=== PATIENT | male | born 1980 | race Two or more races ===

== ENCOUNTER 2018-03-31 19:02 | Inpatient (IN) | payer OTHER ==
[~2018-03-31] VITALS: Ht 170.2 cm; Wt 115.7 kg
[2018-03-31] MEDS ORDERED: GABAPENTIN100 MG ORAL (19:22)
[2018-03-31] MEDS ORDERED: NORCO 10-325 T1 EACH ORAL (19:22)
[2018-03-31] MEDS ORDERED: MORPHINE SULFAT60 M3 PO (19:22)
[2018-03-31] MEDS ORDERED: FOLTX TABLET1 EAC1 PO (19:22)
[2018-03-31] MEDS ORDERED: EMERGEN-C 500500 MG PO (19:22)
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
--- NOTE | 2018-03-31 19:40 | NUR ---
ED Nurse Note: pt req to clean himself, pt was provided with cleaning supplies, pt refused assist at this time, pt advised to notify staff for assist.
[2018-03-31 19:47] VITALS: BP 125/73
--- NOTE | 2018-03-31 19:50 | NUR ---
ED Nurse Note: pt cleaned and changed into gown, noted skin tear and pressure ulcer on buttock area with scant serous drainage, pt aware of wound, pt education regarding prevention of pressure ulcer. pt verbalized understanding.
[2018-03-31 20:15] LABS: APPEARANCE,URINE SLIGHTLY CLOUDY; BILIRUBIN, URINE NEGATIVE (NEGATIVE); COLOR,URINE PALE YELLOW; GLUCOSE, URINE (UA) NEGATIVE (NEGATIVE); KETONES,URINE 3+ (NEGATIVE); LEUKOCYTE ESTERASE ,URINE 3+ (NEGATIVE); NITRITE,URINE NEGATIVE (NEGATIVE); PH,URINE 5 (4.5-8.0); PROTEIN,URINE 3+ (NEGATIVE); UROBILINOGEN,URINE NORMAL MG/DL (0.0-1.0)
[2018-03-31] MEDS ORDERED: Norco 5mg/325mg tab ORAL ONE (20:15)
[2018-03-31] MEDS ORDERED: Cephalexin 500mg cap ORAL ONE (20:30)
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
[2018-03-31] MEDS ORDERED: CEPHALEXIN500 MG ORAL (20:57)
[2018-03-31] MEDS ORDERED: IBUPROFEN600 MG ORAL (20:57)
[2018-03-31 21:40] VITALS: BP 118/68
[2018-03-31 22:52] LABS: BASOPHILS % (AUTO) 1.1 % (0.0-2.0); EOSINOPHILS % (AUTO) 0.9 % (0.0-3.0); HEMATOCRIT 41.3 % (42.0-52.0); HEMOGLOBIN 13.5 G/DL (14.2-18.0); LYMPHOCYTES % (AUTO) 18.3 % (20.0-45.0); MEAN CORPUSCULAR VOLUME 85 FL (80-99); MONOCYTES % (AUTO) 5.3 % (1.0-10.0); NEUTROPHILS % (AUTO) 74.4 % (45.0-75.0); PLATELET COUNT 514 K/UL (150-450); RED BLOOD COUNT 4.85 M/UL (4.70-6.10); RED CELL DISTRIBUTION WIDTH 13.8 % (11.6-14.8); WHITE BLOOD COUNT 15.7 K/UL (4.8-10.8)
--- NOTE | 2018-03-31 23:00 | NUR ---
ED Nurse Note: pt provided with sandwich and juice
[2018-03-31 23:01] LABS: ANION GAP 16 mmol/L (5-15); BLOOD UREA NITROGEN 21 mg/dL (7-18); CALCIUM 9.2 MG/DL (8.5-10.1); CARBON DIOXIDE 21 MMOL/L (21-32); CHLORIDE 99 MMOL/L (98-107); CREATININE 0.8 MG/DL (0.55-1.30); POTASSIUM 3.3 MMOL/L (3.5-5.1); SODIUM 136 MMOL/L (136-145)
[2018-03-31 23:44] VITALS: BP 118/73
--- NOTE | 2018-04-01 00:18 | NUR ---
ED Nurse Note: spoke with ZANE Estrada to give report on MEdsurg.
--- NOTE | 2018-04-01 00:45 | NUR ---
ED Nurse Note: pt transferred to [id number], and endorsed care to Albert rios.
[2018-04-01 01:00] VITALS: BP 131/75
--- NOTE | 2018-04-01 01:00 | NUR ---
NURSE NOTES: Admitted patient awake,alert,verbal,paraplegic,and self catheterize.
[2018-04-01] MEDS ORDERED: Morphine Sulfate 2mg/ml Inj IVP PRN ×2 (01:15→08:30)
[2018-04-01] MEDS ORDERED: HYDROcodone/Acetamin 10/325 tab ORAL PRN ×2 (01:30→11:18)
[2018-04-01 04:00] VITALS: BP 101/47
--- NOTE | 2018-04-01 07:40 | NUR ---
HAND-OFF: Report given to ZANE Loomis.
[2018-04-01 08:00] VITALS: BP 149/76
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
[2018-04-01] MEDS ORDERED: Cephalexin 500mg cap ORAL SCH (09:00)
--- NOTE | 2018-04-01 09:09 | NUR ---
NURSE NOTES: 0800 Received patient alert, verbally responsive. with no sob/respi distress noted. Denies any pain at this time. Assisted with AM care. IV intact. Will continue to monitor.
[2018-04-01] MEDS: Heparin 5000 units/ml inj SUBQ SCH ×2 (09:48→20:33)
--- NOTE | 2018-04-01 10:18 | NUR ---
Social Work This Sw received a consult due to substance abuse. This SW met with patient who is not recognizing he has an addiction at this time, denying abuse at this time. [facility] when medically stable for discharge.
--- NOTE | 2018-04-01 11:12 | NUR ---
NO INSURANCE INFORMATION IN THE BAR UNABLE TO SEND CLINICALS OR REVIEWS.
[2018-04-01 12:00] VITALS: BP 108/76
[2018-04-01 16:00] VITALS: BP 134/84
--- NOTE | 2018-04-01 16:01 | NUR ---
NURSE NOTES:WOUND CARE NOTES:Pt presents with Erythema with moisture intertrigo, partial thickness openings to sacral cleft and perianal region. Keloid scar noted to R trochanter .Pt stated he has had recurrent pressure injury R trochanter due to tendency to lean to R side in w/c. Pt also verbalized spending long periods in his w/c. Reabsorbed blood blister R heel with stable dry eschar R heel (L)2.2cm x(W)4cm. Periwound without erythema or induration. Stable dry eschar dorsal R st metatarsal. Educated pt on wound prevention .Pt educated of risks for R trochanter reopening and risks for further decline in skin integrity .Encouraged to use side rails to shift weight side to side at least hourly .Instructed on off-lifting buttocks when repositioning to minimize friction. Tx.Plan:Apply Triad Moisture Barrier to buttocks and perianal area each Shift. Apply Cavilon Skin Barrier to R heel.Cover with Optifoam .Change every 7 days and prn. Apply Cavilon Skin Barrier to dorsal R st metatarsal Daily. Recommend Over bed Trapeze to enable repositioning. Encourage and assist with repositioning. Off-load heels with pillow. Support surface mattress.
--- NOTE | 2018-04-01 16:57 | NUR ---
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 98.2 HR 118 RR 18 B/P 125/73 WBC 15.7 K 3.3 BUN 21 UA+ PROTEIN,KETONES,BLOOD, LEUKOCYTE ESTERASE, RBC,WBC URINE TOX + AMPHETAMINES IS: NORCO PO KEFLEX PO IV BOLUS NS X 1 LITER ADMITTED TO MED/SURG MED/SURG STATUS DCP RETURN TO [facility]
--- NOTE | 2018-04-01 17:45 | NUR ---
NURSE NOTES: tech to set up trapeze unavailable at this time.
--- NOTE | 2018-04-01 19:28 | NUR ---
HAND-OFF: Report given to ZANE Estrada.
--- NOTE | 2018-04-01 19:44 | NUR ---
NURSE NOTES: Received patient asleep,no SOB noted.
[2018-04-01 20:00] VITALS: BP 105/60
[2018-04-01] MEDS: HYDROmorphone 1mg/ml Carpuject IVP PRN (20:30)
[2018-04-02] VITALS: BP 109/51
[2018-04-02 04:00] VITALS: BP 110/75
[2018-04-02] MEDS: HYDROmorphone 1mg/ml Carpuject IVP PRN ×5 (04:15→22:09)
--- NOTE | 2018-04-02 07:16 | NUR ---
HAND-OFF: Report given to Michaela Morrow RN.
--- NOTE | 2018-04-02 07:48 | NUR ---
NURSE NOTES: Received report from ZANE Calderon. Pt is in the bed. AAO. C/o having a pain. Explained medication roud and timing. Will provide medication.No s/s of respiratory distress or discomfort noted. Bed is in the lowest position. Call light is within the reach. Will continue to monitor
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
[2018-04-02 08:00] VITALS: BP 122/84
[2018-04-02] MEDS: Heparin 5000 units/ml inj SUBQ SCH ×2 (09:40→22:07)
[2018-04-02 10:32] LABS: EOSINOPHILS % (AUTO) 4.5 % (0.0-3.0); HEMATOCRIT 35.2 % (42.0-52.0); HEMOGLOBIN 11.3 G/DL (14.2-18.0); LYMPHOCYTES % (AUTO) 28.7 % (20.0-45.0); MEAN CORPUSCULAR VOLUME 85 FL (80-99); MONOCYTES % (AUTO) 8.9 % (1.0-10.0); PLATELET COUNT 370 K/UL (150-450); RED BLOOD COUNT 4.13 M/UL (4.70-6.10); RED CELL DISTRIBUTION WIDTH 13.6 % (11.6-14.8); WHITE BLOOD COUNT 7.1 K/UL (4.8-10.8)
[2018-04-02 10:50] LABS: ANION GAP 8 mmol/L (5-15); BLOOD UREA NITROGEN 18 mg/dL (7-18); CALCIUM 8.6 MG/DL (8.5-10.1); CARBON DIOXIDE 27 MMOL/L (21-32); CHLORIDE 106 MMOL/L (98-107); CREATININE 0.5 MG/DL (0.55-1.30); POTASSIUM 3.7 MMOL/L (3.5-5.1); SODIUM 141 MMOL/L (136-145)
--- NOTE | 2018-04-02 11:08 | NUR ---
RD ASSESSMENT & RECOMMENDATIONS SEE CARE ACTIVITY FOR COMPLETE ASSESSMENT DAILY ESTIMATED NEEDS: Needs based on Wound, obese, paraplegia 78.9kg adj 25-30 kcals/kg total kcals 1.25-1.5 g protein/kg 99-118 g total protein 25-30 mL/kg total fluid mLs NUTRITION DIAGNOSIS: Increased protein and micronutrients needs r/t wound healing as evidenced by pt w/ multiple areas of skin breakdown/ concern, refer to WC eval. CURRENT DIET:Regular PO DIET RECOMMENDATIONS: Regular w/ DOUBLE PROTEIN PORTIONS ADDITIONAL RECOMMENDATIONS: 1) Wound care: Add COLLEEN BID + MVI x1 + Vit C 500mg daily 2) Calibrated bed scale wt for accurate CBW 3) Monitor lytes daily, replete as needed (low Mg 1.7) 4) Monitor for episodes of hypoglycemia
[2018-04-02 12:00] VITALS: BP 112/72
--- NOTE | 2018-04-02 13:40 | NUR ---
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 97.0 HR 81 RR 20 B/P 122/84 IS: LEVAQUIN IV IVF NS @ 125ML/HR NEURONTIN PO HEPARIN SUBC WOUND CARE CONSULT MED/SURG STATUS
--- NOTE | 2018-04-02 14:56 | NUR ---
INSURANCE ALL CLINICALS AND REVIEWS HAVE BEEN FAXED TO: [employer] [employer] ASSIGNED AT THIS TIME P- [phone] F- [phone]
[2018-04-02 16:00] VITALS: BP 120/68
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
--- NOTE | 2018-04-02 19:45 | NUR ---
NURSE NOTES: Received report from ZANE Herrmann. Patient A&Ox4. In trapeze bed. On room air, no signs of distress or labored breathing. IV intact and patent. Bed in lowest position with call light in reach. Will continue to monitor.
--- NOTE | 2018-04-02 19:54 | NUR ---
HAND-OFF: Report given to ZANE Huerta.
[2018-04-02 20:00] VITALS: BP 144/82
[2018-04-03] VITALS: BP 102/59
[2018-04-03] MEDS: HYDROmorphone 1mg/ml Carpuject IVP PRN ×5 (03:50→21:48)
[2018-04-03 04:00] VITALS: BP 112/68
[2018-04-03 06:44] LABS: BASOPHILS % (AUTO) 1.1 % (0.0-2.0); EOSINOPHILS % (AUTO) 3.7 % (0.0-3.0); HEMATOCRIT 33.5 % (42.0-52.0); HEMOGLOBIN 10.9 G/DL (14.2-18.0); LYMPHOCYTES % (AUTO) 32.8 % (20.0-45.0); MEAN CORPUSCULAR VOLUME 85 FL (80-99); MONOCYTES % (AUTO) 7.7 % (1.0-10.0); NEUTROPHILS % (AUTO) 54.7 % (45.0-75.0); PLATELET COUNT 364 K/UL (150-450); RED BLOOD COUNT 3.93 M/UL (4.70-6.10); RED CELL DISTRIBUTION WIDTH 14.1 % (11.6-14.8); WHITE BLOOD COUNT 8.3 K/UL (4.8-10.8)
[2018-04-03 06:50] LABS: ANION GAP 7 mmol/L (5-15); BLOOD UREA NITROGEN 13 mg/dL (7-18); CALCIUM 8.2 MG/DL (8.5-10.1); CARBON DIOXIDE 25 MMOL/L (21-32); CHLORIDE 106 MMOL/L (98-107); CREATININE 0.6 MG/DL (0.55-1.30); SODIUM 138 MMOL/L (136-145)
--- NOTE | 2018-04-03 07:20 | NUR ---
HAND-OFF: Report given to ZANE Herrmann.
--- NOTE | 2018-04-03 07:58 | NUR ---
NURSE NOTES: Received report from ZANE Huerta. Pt is in the bed. AAO. On the RA. No s/s of respiratory distress or discomfort noted. Bed is in the lowest position. Call light is within the reach. Will continue to monitor.
[2018-04-03 08:00] VITALS: BP 131/80
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
[2018-04-03] MEDS: Heparin 5000 units/ml inj SUBQ SCH ×2 (08:39→21:52)
[2018-04-03 12:00] VITALS: BP 132/76
--- NOTE | 2018-04-03 12:03 | NUR ---
NURSE NOTES: Received a call from Frieda from the lab. Pt is positive for MRSA nares. Dr Orourke notified. No new orders received
--- NOTE | 2018-04-03 13:03 | NUR ---
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 97.3 HR 87 RR 19 B/P 102/59 97% IS: LEVAQUIN IV IVF NS @ 125ML/HR HEPARIN SUBC MED/SURG STATUS
[2018-04-03 16:00] VITALS: BP 117/90
--- NOTE | 2018-04-03 16:37 | General Surgery Progress Note ---
General Surgery-Progress Note Subjective Additional Comments no acute events. labs improved. asking for more pain meds. no n/v/f/c. Objective Last 24 Hour Vital Signs Date Time Temp Pulse Resp B/P (MAP) Pulse Ox O2 Delivery O2 Flow Rate FiO2 04/03/18 12:00 98.4 78 20 132/76 (94) 96 04/03/18 09:00 Room Air 04/03/18 08:00 97.9 86 19 131/80 (97) 100 04/03/18 04:00 97.3 87 19 112/68 (83) 98 04/03/18 00:00 97.9 84 19 102/59 (73) 97 04/02/18 21:00 Room Air 04/02/18 20:00 97.5 104 19 144/82 (102) 100 I&O Intake and Output 04/02/18 04/03/18 19:00 07:00 Intake Total 2275 ml 725 ml Output Total 950 ml Balance 2275 ml -225 ml Intake Oral 1000 ml 600 ml IV Total 1275 ml 125 ml Output Urine Total 950 ml # Voids 5 Drains: none Cardiovascular: RSR Respiratory: clear Abdomen: soft, distended, non-tender, present bowel sounds Extremities: no cyanosis, other Laboratory Tests Test 04/03/18 06:10 White Blood Count 8.3 K/UL (4.8-10.8) Red Blood Count 3.93 M/UL (4.70-6.10) L Hemoglobin 10.9 G/DL (14.2-18.0) L Hematocrit 33.5 % (42.0-52.0) L Mean Corpuscular Volume 85 FL (80-99) Mean Corpuscular Hemoglobin 27.8 PG (27.0-31.0) Mean Corpuscular Hemoglobin Concent 32.6 G/DL (32.0-36.0) Red Cell Distribution Width 14.1 % (11.6-14.8) Platelet Count 364 K/UL (150-450) Mean Platelet Volume 6.3 FL (6.5-10.1) L Neutrophils (%) (Auto) 54.7 % (45.0-75.0) Lymphocytes (%) (Auto) 32.8 % (20.0-45.0) Monocytes (%) (Auto) 7.7 % (1.0-10.0) Eosinophils (%) (Auto) 3.7 % (0.0-3.0) H Basophils (%) (Auto) 1.1 % (0.0-2.0) Sodium Level 138 MMOL/L (136-145) Potassium Level 4.0 MMOL/L (3.5-5.1) Chloride Level 106 MMOL/L (98-107) Carbon Dioxide Level 25 MMOL/L (21-32) Anion Gap 7 mmol/L (5-15) Blood Urea Nitrogen 13 mg/dL (7-18) Creatinine 0.6 MG/DL (0.55-1.30) Estimat Glomerular Filtration Rate > 60 mL/min (>60) Glucose Level 101 MG/DL (74-106) Calcium Level 8.2 MG/DL (8.5-10.1) L Plan Problems: (1) Deep tissue injury Assessment & Plan: Pt presents with Erythema with moisture intertrigo, partial thickness openings to sacral cleft and perianal region. Keloid scar noted to R trochanter .Pt stated he has had recurrent pressure injury R trochanter due to tendency to lean to R side in w/c. Pt also verbalized spending long periods in his w/c. Reabsorbed blood blister R heel with stable dry eschar R heel (L) 2.2cm x(W)4cm. Periwound without erythema or induration. Stable dry eschar dorsal R st metatarsal. Educated pt on wound prevention .Pt educated of risks for R trochanter reopening and risks for further decline in skin integrity .Encouraged to use side rails to shift weight side to side at least hourly .Instructed on off-lifting buttocks when repositioning to minimize friction. Tx.Plan: Apply Triad Moisture Barrier to buttocks and perianal area each Shift. Apply Cavilon Skin Barrier to R heel.Cover with Optifoam .Change every 7 days and prn. Apply Cavilon Skin Barrier to dorsal R st metatarsal Daily. Recommend Over bed Trapeze to enable repositioning. Encourage and assist with repositioning. Off-load heels with pillow. Support surface mattress. (2) Back pain Mason Martinez Apr 03, 2018 16:37
--- NOTE | 2018-04-03 19:42 | NUR ---
HAND-OFF: Report given to ZANE Huerta.
--- NOTE | 2018-04-03 19:50 | NUR ---
NURSE NOTES: Received report from ZANE Herrmann. Patient A&Ox4, in bed. On room air, no signs of distress or labored breathing. IV intact, patent, and infusing IV fluids. No current complaints of pain. Bed in lowest position with call light in reach. Will continue with plan of care.
[2018-04-03 20:00] VITALS: BP 127/72
[2018-04-04] VITALS: BP 127/50
[2018-04-04] MEDS: HYDROmorphone 1mg/ml Carpuject IVP PRN ×6 (01:48→22:28)
[2018-04-04 04:00] VITALS: BP 106/78
--- NOTE | 2018-04-04 07:38 | NUR ---
NURSE NOTES: Received report from ANA Perez. Pt is in the bed, On the RA. No s.s of respiratory distress or discomfort noted. Bed is in the lowest position. Call light is within the reach. Will continue to monitor Addendum: 04/04/18 at 0747 by Michaela Paredes RN Received report from ZANE Huerta
--- NOTE | 2018-04-04 07:58 | NUR ---
HAND-OFF: Report given to ZANE Herrmann.
[2018-04-04 08:00] VITALS: BP 137/68
[2018-04-04 08:32] LABS: BASOPHILS % (AUTO) 0.9 % (0.0-2.0); EOSINOPHILS % (AUTO) 2.8 % (0.0-3.0); HEMATOCRIT 37.5 % (42.0-52.0); MEAN CORPUSCULAR VOLUME 86 FL (80-99); MONOCYTES % (AUTO) 4.9 % (1.0-10.0); NEUTROPHILS % (AUTO) 66.4 % (45.0-75.0); PLATELET COUNT 404 K/UL (150-450); RED BLOOD COUNT 4.34 M/UL (4.70-6.10); RED CELL DISTRIBUTION WIDTH 14.2 % (11.6-14.8); WHITE BLOOD COUNT 9.3 K/UL (4.8-10.8)
[2018-04-04 08:50] LABS: ANION GAP 7 mmol/L (5-15); BLOOD UREA NITROGEN 13 mg/dL (7-18); CALCIUM 8.5 MG/DL (8.5-10.1); CARBON DIOXIDE 28 MMOL/L (21-32); CHLORIDE 105 MMOL/L (98-107); CREATININE 0.6 MG/DL (0.55-1.30); POTASSIUM 4.2 MMOL/L (3.5-5.1); SODIUM 140 MMOL/L (136-145)
--- NOTE | 2018-04-04 09:19 | NUR ---
CASE MANAGEMENT:REVIEW 04/04/18 SI: SEPSIS. ACUTE PYELONEPHRITIS 97.7 88 18 137/68 98% ON RA H/H-12.0/37.5 IS: NORCO PO Q6HRS PRN IV LEVAQUIN Q24 NEURONTIN PO TID ADVIL PO TID HEPARIN SQ Q12 IVF@125/HR IV DILAUDID Q4HRS PRN : MED/SURG STATUS 4 EAST DCP: FROM HOME
--- NOTE | 2018-04-04 09:25 | NUR ---
DISCHARGE PLANNING REFERRED BACK TO: [facility] T: [phone] F: [phone] CLINICALS FAXED Addendum: 04/04/18 at 1106 by YOHAN DESAI LVN LVN CALLED [facility] REGARDING BED AVAILABILITY SPOKE WITH THE RN [employer] WHO STATED PATIENT ALREADY CALLED AND SHE EXPLAINED TO HIM THAT HIS BED WAS GIVEN AWAY WHEN HE LEFT AMA DISCUSSED WITH DR GREENBERG WILL REFER PATIENT TO [facility] CONTRACTED FACILITIES Addendum: 04/04/18 at 1228 by YOHAN DESAI LVN LVN REFERRED TO [facility] T: [phone] F: [phone] AND JIMMY DAVENPORT T: [phone] F: [phone]
[2018-04-04] MEDS: Heparin 5000 units/ml inj SUBQ SCH ×2 (10:00→21:28)
[2018-04-04] MEDS ORDERED: BACTRIM DS TAB1 EAC1 ORAL (10:05)
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
--- NOTE | 2018-04-04 11:37 | General Surgery Progress Note ---
General Surgery-Progress Note Subjective Symptoms: improved, tolerating diet, passing flatus Additional Comments pain improving. states he feels better. Objective Last 24 Hour Vital Signs Date Time Temp Pulse Resp B/P (MAP) Pulse Ox O2 Delivery O2 Flow Rate FiO2 04/04/18 09:00 Room Air 04/04/18 08:00 97.7 88 18 137/68 (91) 98 04/04/18 04:00 97.9 81 20 106/78 (87) 98 04/04/18 00:00 97.7 97 19 127/50 (75) 98 04/03/18 21:00 Room Air 04/03/18 20:00 97.5 80 18 127/72 (90) 99 04/03/18 16:00 97.7 87 20 117/90 (99) 99 04/03/18 12:00 98.4 78 20 132/76 (94) 96 I&O Intake and Output 04/03/18 04/04/18 19:00 07:00 Intake Total 2200 ml 725 ml Output Total 1000 ml 900 ml Balance 1200 ml -175 ml Intake Oral 800 ml 600 ml IV Total 1400 ml 125 ml Output Urine Total 1000 ml 900 ml # Bowel Movements 1 Drains: none Cardiovascular: RSR Respiratory: clear Abdomen: soft, flat, non-tender, present bowel sounds Extremities: other Laboratory Tests Test 04/04/18 07:50 White Blood Count 9.3 K/UL (4.8-10.8) Red Blood Count 4.34 M/UL (4.70-6.10) L Hemoglobin 12.0 G/DL (14.2-18.0) L Hematocrit 37.5 % (42.0-52.0) L Mean Corpuscular Volume 86 FL (80-99) Mean Corpuscular Hemoglobin 27.6 PG (27.0-31.0) Mean Corpuscular Hemoglobin Concent 32.0 G/DL (32.0-36.0) Red Cell Distribution Width 14.2 % (11.6-14.8) Platelet Count 404 K/UL (150-450) Mean Platelet Volume 6.3 FL (6.5-10.1) L Neutrophils (%) (Auto) 66.4 % (45.0-75.0) Lymphocytes (%) (Auto) 25.0 % (20.0-45.0) Monocytes (%) (Auto) 4.9 % (1.0-10.0) Eosinophils (%) (Auto) 2.8 % (0.0-3.0) Basophils (%) (Auto) 0.9 % (0.0-2.0) Sodium Level 140 MMOL/L (136-145) Potassium Level 4.2 MMOL/L (3.5-5.1) Chloride Level 105 MMOL/L (98-107) Carbon Dioxide Level 28 MMOL/L (21-32) Anion Gap 7 mmol/L (5-15) Blood Urea Nitrogen 13 mg/dL (7-18) Creatinine 0.6 MG/DL (0.55-1.30) Estimat Glomerular Filtration Rate > 60 mL/min (>60) Glucose Level 101 MG/DL (74-106) Calcium Level 8.5 MG/DL (8.5-10.1) Plan Problems: (1) Deep tissue injury Assessment & Plan: Pt presents with Erythema with moisture intertrigo, partial thickness openings to sacral cleft and perianal region. Keloid scar noted to R trochanter .Pt stated he has had recurrent pressure injury R trochanter due to tendency to lean to R side in w/c. Pt also verbalized spending long periods in his w/c. Reabsorbed blood blister R heel with stable dry eschar R heel (L) 2.2cm x(W)4cm. Periwound without erythema or induration. Stable dry eschar dorsal R st metatarsal. Educated pt on wound prevention .Pt educated of risks for R trochanter reopening and risks for further decline in skin integrity .Encouraged to use side rails to shift weight side to side at least hourly .Instructed on off-lifting buttocks when repositioning to minimize friction. Tx.Plan: Apply Triad Moisture Barrier to buttocks and perianal area each Shift. Apply Cavilon Skin Barrier to R heel.Cover with Optifoam .Change every 7 days and prn. Apply Cavilon Skin Barrier to dorsal R st metatarsal Daily. Recommend Over bed Trapeze to enable repositioning. Encourage and assist with repositioning. Off-load heels with pillow. Support surface mattress. (2) Back pain Mason Martinez Apr 04, 2018 11:37
[2018-04-04 12:00] VITALS: BP 125/64
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
[2018-04-04] MEDS: Bactrim-DS 1 tab ORAL SCH (15:50)
[2018-04-04 15:59] VITALS: BP 134/71
--- NOTE | 2018-04-04 19:25 | NUR ---
NURSE NOTES: Received patient in bed awake. A&O x4. Denies any pain or discomfort at this time. IV line intact and infusing fluids at 125 ml/hr. Call light within reach. Bed in lowest position and locked. Will continue to monitor.
--- NOTE | 2018-04-04 19:55 | NUR ---
HAND-OFF: Report given to ZANE Victoria.
[2018-04-04 20:00] VITALS: BP 125/72
[2018-04-05] VITALS: BP 120/67
[2018-04-05] MEDS: Bactrim-DS 1 tab ORAL SCH ×2 (02:07→13:16)
[2018-04-05] MEDS: HYDROmorphone 1mg/ml Carpuject IVP PRN ×6 (02:25→23:27)
[2018-04-05 04:00] VITALS: BP 128/74
--- NOTE | 2018-04-05 07:17 | NUR ---
HAND-OFF: Report given to ZANE Aldana.
[2018-04-05 07:24] LABS: BASOPHILS % (AUTO) 0.8 % (0.0-2.0); EOSINOPHILS % (AUTO) 4.6 % (0.0-3.0); HEMOGLOBIN 11.3 G/DL (14.2-18.0); LYMPHOCYTES % (AUTO) 35.2 % (20.0-45.0); MEAN CORPUSCULAR VOLUME 85 FL (80-99); MONOCYTES % (AUTO) 7.1 % (1.0-10.0); NEUTROPHILS % (AUTO) 52.2 % (45.0-75.0); PLATELET COUNT 379 K/UL (150-450); RED BLOOD COUNT 4.09 M/UL (4.70-6.10); RED CELL DISTRIBUTION WIDTH 14.5 % (11.6-14.8); WHITE BLOOD COUNT 6.9 K/UL (4.8-10.8)
[2018-04-05 07:39] LABS: ANION GAP 9 mmol/L (5-15); BLOOD UREA NITROGEN 14 mg/dL (7-18); CALCIUM 8.3 MG/DL (8.5-10.1); CARBON DIOXIDE 26 MMOL/L (21-32); CHLORIDE 105 MMOL/L (98-107); CREATININE 0.7 MG/DL (0.55-1.30); POTASSIUM 4.1 MMOL/L (3.5-5.1); SODIUM 140 MMOL/L (136-145)
--- NOTE | 2018-04-05 07:50 | NUR ---
NURSE NOTES: Received report from ZANE Victoria. Pt is in the bed, AAO. No s/s of respiratory distress or discomfort noted. Bed is in the lowest position. Call light is within the reach. Will continue to monitor.
[2018-04-05 08:00] VITALS: BP 121/75
[2018-04-05] MEDS: Heparin 5000 units/ml inj SUBQ SCH ×2 (08:27→20:49)
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
[2018-04-05 12:00] VITALS: BP 113/66
--- NOTE | 2018-04-05 15:09 | NUR ---
CASE MANAGEMENT:REVIEW 04/05/18 SI: SEPSIS. ACUTE PYELONEPHRITIS 97.0 65 19 113/66 98% ON RA H/H-11.3/35.0 IS: NORCO PO Q6HRS PRN BACTRIM PO Q12 NEURONTIN PO TID ADVIL PO TID HEPARIN SQ Q12 IVF@125/HR IV DILAUDID Q4HRS PRN : MED/SURG STATUS 4 EAST DCP: FROM HOME
--- NOTE | 2018-04-05 15:12 | NUR ---
DISCHARGE PLANNING PATIENT WAS REFERRED BACK TO [facility] YESTERDAY. THEY SAID TO CALL BACK ON FRIDAY TO CONFIRM IF THEY ARE TAKING PATIENT BACK OR NOT. SEEMS PATIENT LEFT [facility] AM REFERRED TO [facility] T: [phone] AND [facility] T: [phone] VINE PRUNER TO FOLLOW UP ON FRIDAY AND INFORM DR GREENBERG ONCE PLACEMENT HAS BEEN SECURED
[2018-04-05 16:00] VITALS: BP 126/75
--- NOTE | 2018-04-05 19:17 | NUR ---
HAND-OFF: Report given to ZANE Victoria.
--- NOTE | 2018-04-05 19:30 | NUR ---
NURSE NOTES: Received patient in bed, alert x4, able to make need known, No acute distress noted, Bed in lowest position and lock engaged, call light and need with in reach, Will continue to monitor.
[2018-04-05 20:00] VITALS: BP 133/71
[2018-04-06] VITALS: BP 124/73
[2018-04-06] MEDS: Bactrim-DS 1 tab ORAL SCH ×2 (01:26→13:40)
[2018-04-06 04:00] VITALS: BP 130/78
[2018-04-06] MEDS: HYDROmorphone 1mg/ml Carpuject IVP PRN ×4 (05:27→22:05)
--- NOTE | 2018-04-06 07:31 | NUR ---
HAND-OFF: Report given to ZANE Kramer.
[2018-04-06 08:00] VITALS: BP 115/64
[2018-04-06] MEDS: Heparin 5000 units/ml inj SUBQ SCH ×2 (09:31→20:43)
--- NOTE | 2018-04-06 10:45 | NUR ---
NURSE NOTES: pt in bed with no sob nor in any form of distress noted. all due meds given as ordered. pain med given as needed. will continue to monitor
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
[2018-04-06 12:00] VITALS: BP 116/69
[2018-04-06] MEDS ORDERED: HYDROmorphone 1mg/ml Carpuject IVP SCH (12:15)
--- NOTE | 2018-04-06 13:50 | NUR ---
INSURANCE ALL CLINICALS AND REVIEWS FAXED TO: STEPHAN[facility] NO ARTIFICIAL BREEDING TECHNICIAN ASSIGNED AT THIS TIME P- [phone] F- [phone]
--- NOTE | 2018-04-06 13:51 | NUR ---
DISCHARGE PLANNING PATIENT HAS BEEN REFERRED TO: [facility] P:[phone] F:[phone]
--- NOTE | 2018-04-06 15:10 | NUR ---
DISCHARGE PLANNING PATIENT HAS BEEN REFERRED TO: [facility] P:[phone] F: [phone] Addendum: 04/07/18 at 1334 by LAST TEIXEIRA Pt not accepted back spoke to Damien. Pt went AMA before so this is the reason they will not take him back
--- NOTE | 2018-04-06 15:38 | NUR ---
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 97.9 HR 71 RR 20 B/P 116/69 RA 97% IS: BACTRIM DS IVF NS @ 125ML/HR HEPARIN SUBC NEURONTIN PO DISCHARGE PLANNING MED/SURG STATUS
[2018-04-06 16:00] VITALS: BP 115/60
--- NOTE | 2018-04-06 18:10 | General Surgery Progress Note ---
General Surgery-Progress Note Subjective Additional Comments doing okay. no complaints. comfortable. pain improving. no n/v/f/c. pending placement Objective Last 24 Hour Vital Signs Date Time Temp Pulse Resp B/P (MAP) Pulse Ox O2 Delivery O2 Flow Rate FiO2 04/06/18 17:56 98.7 04/06/18 17:55 98.7 04/06/18 16:00 98.1 76 20 115/60 (78) 97 04/06/18 12:55 98.7 04/06/18 12:00 97.9 71 20 116/69 (85) 97 04/06/18 09:00 Room Air 04/06/18 08:00 97.5 85 20 115/64 (81) 100 04/06/18 04:00 98.7 88 20 130/78 (95) 100 04/06/18 00:00 97.8 92 18 124/73 (90) 98 04/05/18 21:00 Room Air 04/05/18 20:00 99.7 82 20 133/71 (91) 97 I&O Intake and Output 04/05/18 04/06/18 19:00 07:00 Intake Total 2690 ml 1475 ml Balance 2690 ml 1475 ml Intake Oral 480 ml 350 ml IV Total 1250 ml 1125 ml Other 960 ml # Voids 3 # Bowel Movements 1 Dressing: other Wound: other Drains: other Cardiovascular: RSR Respiratory: clear Abdomen: soft, non-tender, present bowel sounds Extremities: other Plan Problems: (1) Deep tissue injury Assessment & Plan: Pt presents with Erythema with moisture intertrigo, partial thickness openings to sacral cleft and perianal region. Keloid scar noted to R trochanter .Pt stated he has had recurrent pressure injury R trochanter due to tendency to lean to R side in w/c. Pt also verbalized spending long periods in his w/c. Reabsorbed blood blister R heel with stable dry eschar R heel (L) 2.2cm x(W)4cm. Periwound without erythema or induration. Stable dry eschar dorsal R st metatarsal. Educated pt on wound prevention .Pt educated of risks for R trochanter reopening and risks for further decline in skin integrity .Encouraged to use side rails to shift weight side to side at least hourly .Instructed on off-lifting buttocks when repositioning to minimize friction. Tx.Plan: Apply Triad Moisture Barrier to buttocks and perianal area each Shift. Apply Cavilon Skin Barrier to R heel.Cover with Optifoam .Change every 7 days and prn. Apply Cavilon Skin Barrier to dorsal R st metatarsal Daily. Recommend Over bed Trapeze to enable repositioning. Encourage and assist with repositioning. Off-load heels with pillow. Support surface mattress. (2) Back pain Assessment & Plan: improving pending placement Mason Martinez Apr 06, 2018 18:10
--- NOTE | 2018-04-06 19:30 | NUR ---
NURSE NOTES: Received patient in bed, awake, alert x4, able to make need known, No acute distress noted, Bed in lowest position and lock engaged, call light and need with in reach, Will continue to plan of care.
--- NOTE | 2018-04-06 19:37 | NUR ---
HAND-OFF: Report given to ZANE Tristan.
[2018-04-06 20:00] VITALS: BP 145/69
--- NOTE | 2018-04-06 22:00 | NUR ---
NURSE NOTES: Patient got agitated and tried to manipulate staff when IV access wasn't working and couldn't get his pain medicine on time. Re-inserted IV successfully and medicated as ordered.
[2018-04-07] VITALS: BP 129/60
[2018-04-07] MEDS: HYDROmorphone 1mg/ml Carpuject IVP PRN ×5 (02:04→18:23)
[2018-04-07] MEDS: Bactrim-DS 1 tab ORAL SCH ×2 (02:06→14:11)
[2018-04-07 04:00] VITALS: BP 113/70
--- NOTE | 2018-04-07 06:10 | NUR ---
NURSE NOTES: Noted BS 285 for 0630 Novolog sliding scale with 8units coverage, Patient has been NPO midnight for EGD this morning, Called Dr. Pak and left message regarding patient's condition. Received call back from Dr. Pak with order to give 6units of Novolog and 6units of Levemir at this time, done.
--- NOTE | 2018-04-07 07:13 | NUR ---
HAND-OFF: Report given to ZANE Shetty.
[2018-04-07 08:00] VITALS: BP 113/66
--- NOTE | 2018-04-07 08:00 | NUR ---
NURSE NOTES: Received patient alert, in bed. still complaining of pain on lower back. Dilaudid not due at this time. patient alert, awake. prefers Dilaudid for pain. All needs attended. Call light made within reach. WIll cont to monitor.
[2018-04-07] MEDS: Heparin 5000 units/ml inj SUBQ SCH ×2 (09:18→21:00)
[2018-04-07 12:00] VITALS: BP 114/66
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
--- NOTE | 2018-04-07 13:24 | General Surgery Progress Note ---
General Surgery-Progress Note Subjective Symptoms: improved, pain absent, tolerating diet, passing flatus Additional Comments much improved. pending placement Objective Last 24 Hour Vital Signs Date Time Temp Pulse Resp B/P (MAP) Pulse Ox O2 Delivery O2 Flow Rate FiO2 04/07/18 12:00 98.4 84 17 114/66 (82) 97 04/07/18 09:00 Room Air 04/07/18 08:00 98.3 93 17 113/66 (82) 97 04/07/18 04:00 97.3 75 17 113/70 (84) 98 04/07/18 00:00 97.7 75 18 129/60 (83) 99 04/06/18 21:00 Room Air 04/06/18 20:00 97.0 80 17 145/69 (94) 99 04/06/18 17:56 98.7 04/06/18 17:55 98.7 04/06/18 16:00 98.1 76 20 115/60 (78) 97 I&O Intake and Output 04/06/18 04/07/18 19:00 07:00 Intake Total 3775 ml Output Total 1501 ml 900 ml Balance 2274 ml -900 ml Intake Oral 1900 ml IV Total 875 ml Other 1000 ml Output Urine Total 1500 ml 900 ml Stool Total 1 ml # Voids 3 2 # Bowel Movements 1 Cardiovascular: RSR Respiratory: clear Abdomen: soft, non-tender, present bowel sounds Extremities: no cyanosis Plan Problems: (1) Deep tissue injury Assessment & Plan: Pt presents with Erythema with moisture intertrigo, partial thickness openings to sacral cleft and perianal region. Keloid scar noted to R trochanter .Pt stated he has had recurrent pressure injury R trochanter due to tendency to lean to R side in w/c. Pt also verbalized spending long periods in his w/c. Reabsorbed blood blister R heel with stable dry eschar R heel (L) 2.2cm x(W)4cm. Periwound without erythema or induration. Stable dry eschar dorsal R st metatarsal. Educated pt on wound prevention .Pt educated of risks for R trochanter reopening and risks for further decline in skin integrity .Encouraged to use side rails to shift weight side to side at least hourly .Instructed on off-lifting buttocks when repositioning to minimize friction. Tx.Plan: Apply Triad Moisture Barrier to buttocks and perianal area each Shift. Apply Cavilon Skin Barrier to R heel.Cover with Optifoam .Change every 7 days and prn. Apply Cavilon Skin Barrier to dorsal R st metatarsal Daily. Recommend Over bed Trapeze to enable repositioning. Encourage and assist with repositioning. Off-load heels with pillow. Support surface mattress. (2) Back pain Assessment & Plan: improving pending placement Mason Martinez Apr 07, 2018 13:24
--- NOTE | 2018-04-07 13:34 | NUR ---
DISCHARGE PLANNING PT HAS BEEN REFFERED TO: [facility]UC[facility] P:[phone] F:[phone]
--- NOTE | 2018-04-07 15:20 | NUR ---
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 98.4 HR 84 RR 17 B/P 114/69 IS: BACTRIM DS PO RISPERDAL PO IVF NS @ 125ML/HR HEPARIN SUBC. PLACEMENT PENDING MED/SURG STATUS
[2018-04-07 16:00] VITALS: BP 129/78
--- NOTE | 2018-04-07 19:30 | NUR ---
NURSE NOTES: Recieved patient in bed, awake, alert, oriented. No acute distress noted or reported, bed is in low position, alarm is on and bed is locked. Call light is within reach, will continue to monitor for safety and comfort.
--- NOTE | 2018-04-07 19:44 | NUR ---
HAND-OFF: Report given to ZANE Maldonado.
[2018-04-07 20:00] VITALS: BP 97/56
[2018-04-08] VITALS: BP 107/55
[2018-04-08] MEDS: HYDROmorphone 1mg/ml Carpuject IVP PRN ×5 (00:17→23:04)
[2018-04-08] MEDS: Bactrim-DS 1 tab ORAL SCH ×2 (01:30→13:27)
[2018-04-08 04:26] VITALS: BP 82/42
--- NOTE | 2018-04-08 04:34 | NUR ---
NURSE NOTES: Morning blood pressure reading is 81/61, rechecked after 10 min 82/42, patient is asymptomatic, responsive, awake, alert, oriented. Will continue to monitor. CN is aware.
--- NOTE | 2018-04-08 05:47 | NUR ---
NURSE NOTES: Blood pressure re checked 107/53.
--- NOTE | 2018-04-08 07:31 | NUR ---
HAND-OFF: Report given to Sam DEGROOT.
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
[2018-04-08 08:00] VITALS: BP 115/59
--- NOTE | 2018-04-08 08:03 | NUR ---
NURSE NOTES: Received pt from ZANE ROSE. Pt is alert and orient x4. no SOB or acute respiratory distress noted. pt has intact IV access LH 22g is running well. all needs attended, bed is locked and is in the lowest position, call light within easy reach. will continue to monitor.
[2018-04-08] MEDS: Heparin 5000 units/ml inj SUBQ SCH ×2 (09:03→21:00)
--- NOTE | 2018-04-08 11:24 | NUR ---
DISCHARGE PLANNING CURRENTLY SEEKING PLACEMENT, PATIENT HAS BEEN REFERRED TO: 1. [facility] P:[phone] F:[phone] 2. [facility] P:[phone] F:[phone] 3. [facility] P:[phone] F:[phone] 4. [facility] P: [phone] F:[phone] 5. [facility] P:[phone] F:[phone] 6. [facility] P:[phone] F:[phone] 7. [facility] P:[phone] F:[phone] 8. [facility] P:[phone] F:[phone] 9. [facility] P;[phone] F: [phone] 10. [facility] p:[phone] f:[phone]
[2018-04-08 11:53] VITALS: BP 116/51
--- NOTE | 2018-04-08 12:50 | NUR ---
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 98.1 HR 68 RR 19 B/P 116/51 RA 98% IS: BACTRIM DS PO RISPERDAL PO IVF NS 125ML/HR HEPARIN SUBC PLACEMENT PENDING MED/SURG STATUS
--- NOTE | 2018-04-08 14:02 | General Surgery Progress Note ---
General Surgery-Progress Note Subjective Symptoms: improved, pain absent, tolerating diet, passing flatus Objective Last 24 Hour Vital Signs Date Time Temp Pulse Resp B/P (MAP) Pulse Ox O2 Delivery O2 Flow Rate FiO2 04/08/18 11:53 98.1 68 19 116/51 (72) 99 04/08/18 11:24 97.6 04/08/18 09:27 97.6 04/08/18 09:00 Room Air 04/08/18 08:00 97.6 80 19 115/59 (77) 04/08/18 04:26 98.9 83 20 82/42 (55) 04/08/18 00:00 98.5 89 19 107/55 (72) 96 04/07/18 21:00 Room Air 04/07/18 20:00 98.4 108 20 97/56 (70) 04/07/18 16:00 98.8 95 17 129/78 (95) 97 I&O Intake and Output 04/07/18 04/08/18 18:59 06:59 Intake Total 1080 ml 1250 ml Output Total 300 ml Balance 1080 ml 950 ml Intake Oral 1080 ml IV Total 1250 ml Output Urine Total 300 ml # Voids 3 3 # Bowel Movements 4 3 Dressing: other Wound: other Drains: other Cardiovascular: RSR Respiratory: clear Abdomen: soft, flat, non-tender, present bowel sounds Extremities: other Plan Problems: (1) Deep tissue injury Assessment & Plan: Pt presents with Erythema with moisture intertrigo, partial thickness openings to sacral cleft and perianal region. Keloid scar noted to R trochanter .Pt stated he has had recurrent pressure injury R trochanter due to tendency to lean to R side in w/c. Pt also verbalized spending long periods in his w/c. Reabsorbed blood blister R heel with stable dry eschar R heel (L) 2.2cm x(W)4cm. Periwound without erythema or induration. Stable dry eschar dorsal R st metatarsal. Educated pt on wound prevention .Pt educated of risks for R trochanter reopening and risks for further decline in skin integrity .Encouraged to use side rails to shift weight side to side at least hourly .Instructed on off-lifting buttocks when repositioning to minimize friction. Tx.Plan: Apply Triad Moisture Barrier to buttocks and perianal area each Shift. Apply Cavilon Skin Barrier to R heel.Cover with Optifoam .Change every 7 days and prn. Apply Cavilon Skin Barrier to dorsal R st metatarsal Daily. Recommend Over bed Trapeze to enable repositioning. Encourage and assist with repositioning. Off-load heels with pillow. Support surface mattress. (2) Back pain Assessment & Plan: improving pending placement Mason Martinez Apr 08, 2018 14:02
--- NOTE | 2018-04-08 15:19 | NUR ---
RD ASSESSMENT & RECOMMENDATIONS SEE CARE ACTIVITY FOR COMPLETE ASSESSMENT DAILY ESTIMATED NEEDS: Needs based on Wound, obese, paraplegia 78.9kg adj 25-30 kcals/kg [id number] total kcals 1.25-1.5 g protein/kg 99-118 g total protein 25-30 mL/kg total fluid mLs NUTRITION DIAGNOSIS: Increased protein and micronutrients needs r/t wound healing as evidenced by pt w/ multiple areas of skin breakdown/ concern, refer to WC loretta. CURRENT DIET:Regular PO DIET RECOMMENDATIONS: Regular w/ DOUBLE PROTEIN PORTIONS ADDITIONAL RECOMMENDATIONS: 1) Wound care: Add COLLEEN BID + MVI x1 + Vit C 500mg daily 2) Calibrated bed scale wt for accurate CBW 3) Monitor lytes daily, replete as needed, check follow up mag (1.7 on 04/01) 4) Snacks BID in b/w meals 5) Consider DC IVF (NS running @ 125ml/hr since 04/01, pt w/ good PO intake, BUN and creat all wnl)
[2018-04-08 16:00] VITALS: BP 119/63
--- NOTE | 2018-04-08 19:30 | NUR ---
NURSE NOTES: Recieved patient in bed, awake, alert, oriented, on room air, no acute distress noted, bed is in low position, locked and alarm is on. Call light is within reach, will continue to monitor for safety and comfort.
--- NOTE | 2018-04-08 19:44 | NUR ---
HAND-OFF: Report given to ZANE ROSE.
[2018-04-08 20:00] VITALS: BP 104/55
--- NOTE | 2018-04-08 22:59 | NUR ---
NURSE NOTES: Patient has been calling and demanding his Dilaudid 1 mg that has been changed by Dr. Orourke to be given every 6 hours, RN called MD exchange and spoke with covering MD Dr. Terry, per MD its ok to medicate right now at 2300, order will remain every 6 hours, and patient will see MD in am.
[2018-04-09] MEDS: Bactrim-DS 1 tab ORAL SCH ×2 (02:15→14:34)
[2018-04-09] MEDS: HYDROmorphone 1mg/ml Carpuject IVP PRN ×4 (05:37→23:37)
--- NOTE | 2018-04-09 07:31 | NUR ---
NURSE NOTES: Received pt from ZANE ROSE. Pt is alert and orient x4. No SOB or acute respiratory distress noted. pt has intact iv access LH 22g is running well. Dr carter visited pt NNO.all needs attended, bed is locked and is in the lowest position, call light within easy reach. will continue to monitor.
[2018-04-09 08:00] VITALS: BP 145/79
[2018-04-09] MEDS: Heparin 5000 units/ml inj SUBQ SCH ×2 (08:40→20:21)
[2018-04-09 11:58] VITALS: BP 137/84
[2018-04-09 16:00] VITALS: BP 108/60
--- NOTE | 2018-04-09 16:26 | NUR ---
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 98.2 HR 86 RR 18 B/P 108/60 RA 98% IS: IVF NS @ 125ML/HR BACTRIM DS PO NEURONTIN PO PLACEMENT PENDING MED/SURG STATUS
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
--- NOTE | 2018-04-09 19:19 | NUR ---
HAND-OFF: Report given to ZANE ORTEGA.
--- NOTE | 2018-04-09 19:55 | NUR ---
NURSE NOTES: Patient in bed awake and alert x4, no s/s distress noted. All needs attended to. Safety precaution maintained. Call light within reach.
[2018-04-09 20:00] VITALS: BP 105/58
[2018-04-10] VITALS: BP 117/69
[2018-04-10] MEDS: Bactrim-DS 1 tab ORAL SCH (02:00)
[2018-04-10 04:00] VITALS: BP 111/70
[2018-04-10] MEDS: HYDROmorphone 1mg/ml Carpuject IVP PRN ×3 (05:37→17:42)
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
--- NOTE | 2018-04-10 07:25 | NUR ---
HAND-OFF: Report given to Sam DEGROOT.
--- NOTE | 2018-04-10 07:56 | NUR ---
NURSE NOTES: Received pt from ZANE ORTEGA. Pt is alert and orient x4. No SOB or acute respiratory distress noted. pt has intact iv access LH 22g is running well . pt is in contact isolation. all needs attended, bed is locked and is in the lowest position, call light within easy reach. will continue to monitor.
[2018-04-10 08:00] VITALS: BP 111/80
[2018-04-10] MEDS: Heparin 5000 units/ml inj SUBQ SCH ×2 (09:17→20:35)
[2018-04-10 12:00] VITALS: BP 125/86
[2018-04-10 16:00] VITALS: BP 119/89
--- NOTE | 2018-04-10 16:56 | NUR ---
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 99.3 HR 96 RR 20 B/P 119/89 RA 98% IS: NEURONTIN PO IVF NS 125ML/HR HEPARIN SUBC RISPERDAL PO PLACEMENT PENDING MED/SURG STATUS
--- NOTE | 2018-04-10 19:40 | NUR ---
NURSE NOTES: Received patient alert and awake in bed. Reports 8/10 pain. No other acute signs of distress. IV site L hand running NS at 125 ml/hr. 3 side rails up, bed on lowest position, call light within reach.
[2018-04-10 20:00] VITALS: BP 128/81
--- NOTE | 2018-04-10 20:15 | NUR ---
HAND-OFF: Report given to ZANE ORTEGA.
[2018-04-10] MEDS ORDERED: HYDROmorphone 1mg/ml Carpuject IVP SCH (21:00)
--- NOTE | 2018-04-10 21:10 | NUR ---
NURSE NOTES: Pt c/o 01/07 back pain, c/o last dose pain medicine was not effective. Called national sales executive Dr Pratt, received order for dilaudid 1mg ivp once. Order carried out.
[2018-04-11] VITALS: BP 117/76
[2018-04-11] MEDS: HYDROmorphone 1mg/ml Carpuject IVP PRN ×4 (03:42→21:41)
[2018-04-11 04:00] VITALS: BP 117/62
--- NOTE | 2018-04-11 07:06 | NUR ---
HAND-OFF: Report given to ZANE Singer .
[2018-04-11 08:00] VITALS: BP 143/92
[2018-04-11] MEDS: Heparin 5000 units/ml inj SUBQ SCH ×2 (08:17→21:47)
[2018-04-11 12:00] VITALS: BP 125/60
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
--- NOTE | 2018-04-11 15:51 | NUR ---
NURSE NOTES: Two bag of straight cath provided.
[2018-04-11 16:00] VITALS: BP 151/81
--- NOTE | 2018-04-11 19:41 | NUR ---
HAND-OFF: Report given to ZANE Aceves.
--- NOTE | 2018-04-11 19:42 | NUR ---
NURSE NOTES: Received patient in no apparent distress. A&OX4. IV site patent and intact. Bed in lowest position. Call light within reach. Will continue to monitor.
[2018-04-11 20:00] VITALS: BP 128/73
[2018-04-12] VITALS: BP 125/55
[2018-04-12] MEDS: HYDROmorphone 1mg/ml Carpuject IVP PRN ×4 (03:38→21:40)
[2018-04-12 04:00] VITALS: BP 136/84
--- NOTE | 2018-04-12 07:19 | NUR ---
HAND-OFF: Report given to Rebeca DEGROOT.
[2018-04-12 08:00] VITALS: BP 121/54
--- NOTE | 2018-04-12 08:20 | NUR ---
NURSE NOTES: Received patient awake,verbally responsive in bed. with no sob. Denies any pain at this time IV on right hand intact. All needs attended. Call light made within reach. will cont to monitor.
[2018-04-12] MEDS: Heparin 5000 units/ml inj SUBQ SCH ×2 (09:00→21:42)
--- NOTE | 2018-04-12 10:55 | NUR ---
NURSE NOTES: Received report from Rebeca,patient is alert and oriented, sitting up in bed,no needs noted at this time,call light within reach.
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
[2018-04-12 12:00] VITALS: BP 108/65
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
--- NOTE | 2018-04-12 17:18 | NUR ---
PHARMACY ASSOCIATECLAY HOISTER 04/11/2018 SI: FAILURE TO THRIVE T 98.1 HR 76 RR 19 B/P 151/81 SATS 97% ON RA NO LABS TODAY IS: NEURONTIN PO IVF NS 125ML/HR HEPARIN SUBQ RISPERDAL PO PLACEMENT PENDING MED/SURG STATUS 04/12/2018 SI: FAILURE TO THRIVE T 98.2 HR 77 RR 17 B/P 108/65 SATS 97% ON RA NO LABS TODAY IS: NEURONTIN PO IVF NS 125ML/HR HEPARIN SUBQ RISPERDAL PO PLACEMENT PENDING MED/SURG STATUS
[2018-04-12 17:32] LABS: EOSINOPHILS % (AUTO) 2.9 % (0.0-3.0); HEMATOCRIT 33.7 % (42.0-52.0); HEMOGLOBIN 10.8 G/DL (14.2-18.0); LYMPHOCYTES % (AUTO) 23.1 % (20.0-45.0); MEAN CORPUSCULAR VOLUME 85 FL (80-99); MONOCYTES % (AUTO) 6.8 % (1.0-10.0); NEUTROPHILS % (AUTO) 66.2 % (45.0-75.0); PLATELET COUNT 336 K/UL (150-450); RED BLOOD COUNT 3.95 M/UL (4.70-6.10); RED CELL DISTRIBUTION WIDTH 14.4 % (11.6-14.8); WHITE BLOOD COUNT 8.5 K/UL (4.8-10.8)
[2018-04-12 17:40] LABS: % IRON SATURATION 9 % (15-50); IRON 34 ug/dL (50-175); TOTAL IRON BINDING CAPACITY 386 ug/dL (250-450)
[2018-04-12 17:52] LABS: ALANINE AMINOTRANSFERASE 18 U/L (12-78); ALBUMIN 3.2 G/DL (3.4-5.0); ALBUMIN/GLOBULIN RATIO 0.8 (1.0-2.7); ALKALINE PHOSPHATASE 139 U/L (46-116); ANION GAP 8 mmol/L (5-15); ASPARTATE AMINO TRANSFERASE 12 U/L (15-37); BILIRUBIN,TOTAL 0.2 MG/DL (0.2-1.0); BLOOD UREA NITROGEN 18 mg/dL (7-18); CALCIUM 8.3 MG/DL (8.5-10.1); CARBON DIOXIDE 27 MMOL/L (21-32); CHLORIDE 106 MMOL/L (98-107); CREATININE 0.8 MG/DL (0.55-1.30); FERRITIN 32 NG/ML (8-388); POTASSIUM 4.1 MMOL/L (3.5-5.1); SODIUM 140 MMOL/L (136-145)
--- NOTE | 2018-04-12 19:10 | NUR ---
NURSE NOTES: Patient resting,state still having some pain,patient requesting the time interval for pain medication be placed back to Q4hr prn instead of Q6hr prn.Will notify Doctor.
--- NOTE | 2018-04-12 19:45 | NUR ---
HAND-OFF: Report given to Jason DEGROOT.
[2018-04-12 20:00] VITALS: BP 142/77
--- NOTE | 2018-04-12 20:15 | NUR ---
NURSE NOTES: Patient in bed, awake, alert and verbally responsive. Able to make needs known. Respiration is even and unlabored. Called Primary MD patient complaining of pain, 01/07, current medication is dilaudid 1 mg q6. Left a message. Awaiting call back. Bed in low and locked position. Skin is warm and dry to touch. Call light is at bedside. Will continue plan of care.
[2018-04-13] VITALS (7 sets, daily range): BP systolic 116–152; BP diastolic 62–88
[2018-04-13] MEDS: HYDROmorphone 1mg/ml Carpuject IVP PRN ×4 (03:26→21:24)
--- NOTE | 2018-04-13 03:41 | NUR ---
NURSE NOTES: Patient complained of back pain, given PRN pain medication, call light is at bedside. Will continue plan of care.
--- NOTE | 2018-04-13 07:12 | NUR ---
HAND-OFF: Report given to RN. Mk.
--- NOTE | 2018-04-13 07:41 | NUR ---
NURSE NOTES: pt in bed with no sob nor in any form of distress noted. denies any pain at this time. will continue to monitor
--- NOTE | 2018-04-13 08:01 | NUR ---
NURSE NOTES: pt asked RN if he can take dilaudid 1mg Q6hr to Q4hr. Dr. Orourke made aware and said "NO".
[2018-04-13] MEDS: Heparin 5000 units/ml inj SUBQ SCH ×2 (09:02→21:15)
--- NOTE | 2018-04-13 10:41 | NUR ---
PLANT ENGINEERING SUPERVISORENVIRONMENTAL SERVICES FLOOR TECH SI: FAILURE TO THRIVE T. 98.1 HR 88 RR 20 B/P 137/84 ALK PHOS 139 IS: IVF NS @ 125ML/HR RISPERDAL PO NEURONTIN PO DILAUDID IV DISCHARGE PLANNING MED/SURG STATUS
--- NOTE | 2018-04-13 14:30 | NUR ---
PCurtisT Note: P.T evaluation completed. Pt is currently functioning at baseline, W/C level.Skilled P.T service not needed at this time. Recommend return to prior living arrangement at D/C. Addendum: 04/13/18 at 1430 by EJ MATOS PT Amended: Links added.
--- NOTE | 2018-04-13 15:23 | NUR ---
INSTRUCTOR DRAMATIC ARTS NOTES SPOKE WITH J LUIS KINCAID REQUESTING TO BE SENT TO A BOARD AND CARE WILL COME SEE THE PT TOMORROW FOR PLACEMENT.
--- NOTE | 2018-04-13 15:24 | NUR ---
Social Service Note SW faxed referral to [facility] [phone] (p) [phone] (f) and to [facility] [phone] (p) [phone] for possible placement. Referrals received and are being reviewed. Will follow up.
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
--- NOTE | 2018-04-13 19:23 | NUR ---
HAND-OFF: Report given to Tamie Maldonado.
--- NOTE | 2018-04-13 19:30 | NUR ---
NURSE NOTES: Received patient in bed, awake, alert, oriented, no acute distress noted or reported, bed is in low position, locked and alarm is on, call light is within reach. Will continue to monitor for safety and comfort.
[2018-04-14] MEDS: HYDROmorphone 1mg/ml Carpuject IVP PRN ×4 (03:17→22:01)
[2018-04-14 04:27] VITALS: BP 121/81
--- NOTE | 2018-04-14 07:25 | NUR ---
HAND-OFF: Report given to Lucrecia DEGROOT.
--- NOTE | 2018-04-14 07:28 | NUR ---
NURSE NOTES: Patient alert x4, in room air, no sign of distress and shortness of breath. No sign of chest pain. Skin- sacral perneal, right heel, buttock crack. Isolation for MRSA-nares. Patient on Trapze. Bed at lowest position, side rails upx2, breaks engaged. IV Left-wrist, flushes well. Will give pain med as ordered. Call light within reach. Will keep monitoring.
[2018-04-14 08:00] VITALS: BP 138/76
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
[2018-04-14] MEDS: Heparin 5000 units/ml inj SUBQ SCH ×2 (09:37→20:51)
[2018-04-14 12:00] VITALS: BP 149/94
--- NOTE | 2018-04-14 13:05 | NUR ---
NURSE NOTES: Patient is asking to get another dose of Dilaudid before the due time. Patient says he is in pain and wanna get another does and asking RN to communicate his Dr to get a one time order of Dilaudid. I communicated Dr Orourke, and waiting for order.
--- NOTE | 2018-04-14 13:13 | NUR ---
RD ASSESSMENT & RECOMMENDATIONS SEE CARE ACTIVITY FOR COMPLETE ASSESSMENT DAILY ESTIMATED NEEDS: Needs based on Wound, obese, paraplegia 78.9kg adj 25-30 kcals/kg [id number] total kcals 1.25-1.5 g protein/kg 99-118 g total protein 25-30 mL/kg total fluid mLs NUTRITION DIAGNOSIS: Increased protein and micronutrients needs r/t wound healing as evidenced by pt w/ multiple areas of skin breakdown/ concern, refer to WC eval. CURRENT DIET: Regular PO DIET RECOMMENDATIONS: Regular w/ DOUBLE PROTEIN PORTIONS ADDITIONAL RECOMMENDATIONS: 1) Wound care: Add COLLEEN BID + MVI x1 + Vit C 500mg daily 2) Calibrated bed scale wt for accurate CBW 3) Monitor lytes daily, replete as needed, check follow up mag (1.7 on 04/01) 4) Snacks BID in b/w meals . .
--- NOTE | 2018-04-14 13:22 | NUR ---
NURSE NOTES: Dr Orourke did not put any new order for pain.
--- NOTE | 2018-04-14 14:32 | NUR ---
ACADEMIC ADVISING DIRECTORPIECE DYE WORKER SI: FAILURE TO THRIVE T. 97.9 HR 91 RR 20 B/P 149/94 RA 98% IS: RISPERDAL PO NEURONTIN PO HEPARIN SUBC DILAUDID IV MED/SURG STATUS
--- NOTE | 2018-04-14 14:34 | NUR ---
SLOTS MANAGER NOTES SPOKE WITH [facility] PLACEMENT FOR BOARD AND CARE. FACE TO FACE VISIT WITH PT COMPLETED. PT DECIDED TO GO TO A BOARD AND CARE. WAITING FOR AN ACCEPTING FACILITY. WILL FOLLOW UP.
--- NOTE | 2018-04-14 15:09 | NUR ---
NURSE NOTES: Patient wanna have peanut butter jelly sandwich, called kitchen. Waiting for food.
[2018-04-14 16:00] VITALS: BP 141/86
--- NOTE | 2018-04-14 16:20 | NUR ---
*-*INSURANCE UPDATED CLINICALS AND REVIEWS FAXED TO: [facility] P- [phone] F- [phone]
--- NOTE | 2018-04-14 19:29 | NUR ---
HAND-OFF: Report given to ZANE Escobar.
--- NOTE | 2018-04-14 19:40 | NUR ---
NURSE NOTES: Received patient awake in bed, watching TV. Reports a 10/10 pain, will follow MD order for pain management. No other acute signs of distress. IV site Left wrist on saline lock, no signs of irritation, dressing dry and intact. Bed on lowest position, 3 side rails up, call light within reach.
[2018-04-14 20:00] VITALS: BP 129/59
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
[2018-04-15] VITALS: BP 132/74
[2018-04-15 04:00] VITALS: BP 124/72
[2018-04-15] MEDS: HYDROmorphone 1mg/ml Carpuject IVP PRN ×5 (04:01→10:30)
--- NOTE | 2018-04-15 07:15 | NUR ---
HAND-OFF: Report given to Elva Cardona RN. Patient appears stable with no acute signs of distress.
--- NOTE | 2018-04-15 07:30 | NUR ---
NURSE NOTES: received patient from Stacey DEGROOT, patient is up in bed eating breakfast, no distress noted, bed is locked and in lowest position, will continue to monitor.
--- NOTE | 2018-04-15 07:56 | NUR ---
HAND-OFF: Report given to Kaylie DEGROOT.
[2018-04-15 08:00] VITALS: BP 137/57
--- NOTE | 2018-04-15 08:02 | NUR ---
NURSE NOTES: Patient awake performing ADLs . Requested towels . Catheterized self wearing gloves at this time. Able to to verbalize known needs. Current plan of care will be followed
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
[2018-04-15] MEDS: Heparin 5000 units/ml inj SUBQ SCH ×2 (09:19→20:11)
[2018-04-15] MEDS ORDERED: BACTRIM DS TAB1 EAC1 ORAL (10:54)
[2018-04-15] MEDS ORDERED: NORCO 5-325 TA1 EACH ORAL (10:55)
--- NOTE | 2018-04-15 11:27 | NUR ---
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 97.2 HR 78 RR 20 B/P 125/77 IS: ZYPREXA PO SEROQUEL PO PEPCID PO HEPARIN SUBC MED/SURG STATUS
--- NOTE | 2018-04-15 11:48 | NUR ---
Social Service Note LUCIO met with patient and spoke with patient's Aunt Kori [phone] in patient's room to discuss anticipated dc planning. CM awaiting response from [facility] for transitional housing. LUCIO followed up with [facility] and provided updated information. Awaiting approval. Aunt will bring patient's slide board to the hospital this afternoon. Medications are being filled with [facility]. CM arranging home health follow up. Will monitor and follow up. Follow up appointment [address] [id number] April 27 at 3pm [place] HOLLIDAY
[2018-04-15 12:00] VITALS: BP 140/91
[2018-04-15] MEDS ORDERED: HYDROcodone/Acetamin 10/325 tab ORAL SCH (14:54)
[2018-04-15 16:00] VITALS: BP 140/91
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
--- NOTE | 2018-04-15 19:21 | NUR ---
NURSE NOTES: Pt plan of care followed. Discharge plans pending at this time. Pipeline Superintendent Division walked to room no sounds, yet when cart is pushed close to room begins moaning with head down and one eye up. Pt requested that curriculum writer call Dr for additional pain medication , nno orders provided. Required new placement of IV due to infiltration, remained calm with no facial grimace of pain while new iv was inserted. Provided with all routine medications. Follow call made to Dr. Walls for pain medication in tablet form since discharge did not occur . Awaiting response
--- NOTE | 2018-04-15 19:25 | NUR ---
HAND-OFF: Report given to Luz Carrillo RN.
--- NOTE | 2018-04-15 19:26 | NUR ---
NURSE NOTES: Oncoming nurse made aware of discharge plans and pain medication changes, aware that Dr. Orourke was phoned
--- NOTE | 2018-04-15 19:40 | NUR ---
NURSE NOTES: Received patient awake in bed, no respiratory distress noted. Patient is complaining of 10/10 pain. Patient is aware of current pain medication status. Awaiting MD order for new pain medication. Patient is cooperative but anxious. No IV site. Bed on lowest position, call light within reach, 2 siderails up.
[2018-04-15 20:00] VITALS: BP 129/78
[2018-04-15] MEDS: Norco 5mg/325mg tab ORAL PRN (20:08)
[2018-04-16] VITALS: BP 130/86
[2018-04-16 04:00] VITALS: BP 107/51
[2018-04-16] MEDS: Norco 5mg/325mg tab ORAL PRN ×2 (04:07→09:51)
--- NOTE | 2018-04-16 07:12 | NUR ---
HAND-OFF: Report given to ZANE Lott.
--- NOTE | 2018-04-16 07:47 | NUR ---
NURSE NOTES: Pt called to clinical writer to room no facial grimace of pain requesting morphine. " I take morphine, [place] aint nothing, I need you to call the Dr" I informed that Dr will be called per his request. At that time pt requested to speak to charge nurse. Charge nurse made aware. Current plan of care will be followed. pt states his lower spine is in pain yet " I can not feel nothing from the center of my chest down" Qued on the complaints of pain to lower spine " Well feel that just nothing else" Dr Orourke paged . Will update notes if necessary
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
--- NOTE | 2018-04-16 07:58 | NUR ---
NURSE NOTES: Dr Orourke Returned call did not give any new orders at this time in regards to pt request
[2018-04-16 08:00] VITALS: BP 109/52
[2018-04-16] MEDS: Heparin 5000 units/ml inj SUBQ SCH (08:44)
--- NOTE | 2018-04-16 08:48 | NUR ---
NURSE NOTES: Offset Lithographic Press Setter approached room pt quite watching TV , verbalized pain 10/10 ion 1-10 pain scale. Will reassess
[2018-04-16 12:00] VITALS: BP 119/59
--- NOTE | 2018-04-16 12:59 | NUR ---
NURSE NOTES: ' Just give me my chair: If the Dr is not going to give me want I want I can get a bottle of the street" Risk and benefits explained. play writer offered to call family member , with refusal. " Just give me chair, and my prescriptions and I am getting the hell out of here, I do not care if I go to the street" Safety measures explained. Dr made aware of pt decision. Pt provided with consent on patient destination. provided and signed. Did not verbalize any further concerns. Rivet Tester informed him that assistance will be provided for dressing needs, " just get my chair and put my clothes on!' assistance called to room. Pt removed his own IV " well when I found out I didn't need it I took it out" Will update notes if necessary. Pt informed that attempts were currently being made to find placement. " I do not care about that" Pt is AOx4 and is self responsible. Well update notes notes if indicated. Pt has his own wheelchair and his belonging are in chair. Provided with grooming , dressing , and transfer assistance. Are of concern to to buttocks cleaned and ointment applied to area earlier in shift.
--- NOTE | 2018-04-16 13:10 | NUR ---
NURSE NOTES:WOUND CARE FOLLOWUP NOTES:Sacral and R heel wounds have resolved .No new skin concerns noted .Re-educated and encouraged pt to reposition frequently and to off-lift buttocks when repositioning to prevent friction against bed linens
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
--- NOTE | 2018-04-16 13:38 | NUR ---
NURSE NOTES: Pt signed AMA documents
--- NOTE | 2018-04-16 13:53 | NUR ---
NURSE NOTES: Security took additional items to lost and found. Pt left facility in wheelchair. Stable condition no further complaints or concerns made related to care.
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
== END 2018-04-16 13:30 | disposition left against medical advice (07) | DRG 720 ==
LOC: EMR 19:51 → 4E 23:06 → EDBEDREQ 04-01 00:08 → 4E 04-01 00:46
DX: A41.59 Other Gram-negative sepsis (principal); L89.150 Pressure ulcer of sacral region, unstageable; G82.20 Paraplegia, unspecified; E83.42 Hypomagnesemia; S24.103S Unspecified injury at T7-T10 level of thoracic spinal cord, sequela; N10 Acute pyelonephritis; R65.20 Severe sepsis without septic shock; R62.7 Adult failure to thrive; M54.9 Dorsalgia, unspecified; F15.10 Other stimulant abuse, uncomplicated; E87.6 Hypokalemia; W34.00XS Accidental discharge from unspecified firearms or gun, sequela; Z99.3 Dependence on wheelchair; Z76.5 Malingerer [conscious simulation]; D63.8 Anemia in other chronic diseases classified elsewhere
CPT/HCPCS: 36415; 80048; 80053; 80307; 80329; 81003; 82728; 83540; 83550; 83735; 85025; 86631; 87040; 87081; 87086; 87181; 96360; 99285; J8499